=== PATIENT | female | born 1975 | race Caucasian/White ===

== ENCOUNTER 2016-07-21 11:58 | Emergency (ER) | payer OTHER ==
[~2016-07-21] VITALS: Ht 175.3 cm; Wt 71.4 kg
[~2016-07-21 11:58] MED LIST: ARTHROTEC 751 TABLET PO; ASPIRIN EC325 MG PO; ATORVASTATIN CA80 MG PO; NOHOMEMEDS; NORCO 10/3251 TABLET PO; PERCOCET 5/31 TABLET PO; TIZANIDINE HCL4 M1 PO
[2016-07-21 13:11] LABS: BASOPHIL COUNT 0.1 K/uL (0-0.1); EOSINOPHIL (%) 1.4 % (0-5); EOSINOPHIL COUNT 0.1 K/uL (0-0.3); HEMATOCRIT 39.1 % (36.0-46.0); LYMPHOCYTE COUNT 1.9 K/uL (1.0-2.8); MCH 29.9 PG (29.0-34.0); MCHC 34.5 G/DL (30.0-36.0); MCV 86.5 FL (83-99); MEAN PLAT.VOLUME 9.7 uM^3 (9.5-12.4); MONOCYTE (%) 7.8 % (3-12); MONOCYTE COUNT 0.4 K/uL (0-0.8); NEUTROPHIL (%) 56.2 % (45-76); NEUTROPHIL COUNT 3.1 K/uL (1.8-6.4); PLATELET COUNT 343 K/uL (156-360); RBC DIS.WIDTH-CV 13.4 % (11.8-14.6); RBC DIS.WIDTH-SD 41.5 % (39-53); RED BLOOD COUNT 4.52 M/uL (3.80-5.20); WHITE BLOOD COUNT 5.5 K/uL (4.1-10.2)
[2016-07-21 13:23] LABS: CHLORIDE 108 mEq/L (99-109); POTASSIUM 3.9 mEq/L (3.7-5.4); SODIUM 139 mEq/L (136-147)
[2016-07-21 13:25] LABS: GLUCOSE 86 mg/dL (70-99)
[2016-07-21 13:27] LABS: ANION GAP 7 MEQ/L (2-14); TOTAL BILIRUBIN 0.4 mg/dL (0.0-1.0)
[2016-07-21 13:29] LABS: ALKALINE PHOSPHATASE 51 IU/L (3-129); GFR ESTIMATE (CALCULATED) > 59 mL/min/
[2016-07-21 13:30] LABS: UREA NITROGEN (BUN) 10 mg/dL (9-23)
[2016-07-21 13:33] LABS: LIPASE 15 U/L (1.0-51.0)
[2016-07-21 14:11] LABS: ADD MIUA? YES; BILIRUBIN NEGATIVE; BLOOD TRACE; COLOR YELLOW ((YELLOW)); GLUCOSE (STRIP) NEGATIVE; KETONES NEGATIVE; LEUKOCYTES NEGATIVE; NITRITE NEGATIVE; PROTEIN (STRIP) NEGATIVE; SPECIFIC GRAVITY 1.009 (1.000-1.030); UROBILINOGEN 0.2 MG/DL (0.2-1.0)
[2016-07-21 14:39] LABS: BACTERIA NONE SEEN; CASTS NONE SEEN /LPF; CRYSTALS NONE SEEN; EPITHELIAL CELLS RARE; MUCUS NONE SEEN; RED BLOOD CELLS NONE SEEN /HPF (0-5); WHITE BLOOD CELLS RARE /HPF (0-5)
[2016-07-21 15:08] LABS: QUANTITATIVE HCG < 4.0 MIU/ML
[2016-07-21] MEDS ORDERED: ULTRACET1 TABLET PO (17:07)
[2016-07-21 18:04] VITALS: BP 96/64
== END 2016-07-21 18:05 | disposition home or self-care (01) ==
LOC: RME 11:58 → EME 11:58 → RME 18:05
PROVIDERS: Physician Assistant
DX: K80.20 Calculus of gallbladder without cholecystitis without obstruction (principal); Z86.011 Personal history of benign neoplasm of the brain
CPT/HCPCS: 76705; 80053; 81003; 83690; 84702; 85025; 99281; 99284; J0500; J3010

== ENCOUNTER 2016-09-25 13:13 | Emergency (ER) | payer OTHER ==
[~2016-09-25] VITALS: Ht 175.3 cm; Wt 70.0 kg
[~2016-09-25 13:13] MED LIST changes: +ULTRACET1 TABLET PO
[2016-09-25] MEDS ORDERED: MOBIC15 MG PO (18:20)
[2016-09-25 19:02] VITALS: BP 120/82
== END 2016-09-25 19:06 | disposition home or self-care (01) ==
LOC: EME 13:13
DX: S93.401A Sprain of unspecified ligament of right ankle, initial encounter (principal); X50.1XXA Overexertion from prolonged static or awkward postures, initial encounter
CPT/HCPCS: 73630; 99281; 99283